=== PATIENT | male | born 1995 | race Asian ===

== ENCOUNTER 2020-05-11 10:06 | Emergency (ER) | payer OTHER ==
[2020-06-27 11:03] LABS: CHLAMYDIA DNA AMPLIFICATION NEGATIVE (NEGATIVE); GC DNA AMPLIFICATION NEGATIVE (NEGATIVE)
[2020-06-28 03:59] LABS: APPEARANCE, URINE HAZY (CLEAR); BACTERIA, URINE AUTO NEGATIVE (NEGATIVE); BILIRUBIN, URINE AUTO NEGATIVE (NEGATIVE); BLOOD, URINE BLOOD NEGATIVE (NEGATIVE); COLOR, URINE YELLOW (YELLOW); GLUCOSE, URINE (UA) AUTO NEGATIVE (NEGATIVE); KETONE, URINE AUTO NEGATIVE (NEGATIVE); LEUKOCYTE ESTERASE, URINE AUTO NEGATIVE (NEGATIVE); NITRITE, URINE AUTO NEGATIVE (NEGATIVE); PROTEIN, URINE AUTO NEGATIVE (NEGATIVE); RBC, URINE AUTO 1 /HPF (0-3); SPECIFIC GRAVITY URINE AUTO 1.002 (1.002-1.035); SQUAMOUS EPITHELIAL CELL UR AU 0 /HPF (0-6); UROBILINOGEN, URINE AUTO 0.2 mg/dL (0.0-2.0); WBC, URINE AUTO 0 /HPF (0-3)
== END 2020-05-11 12:28 | disposition home or self-care (01) ==
LOC: M ED 10:06
DX: R31.9 Hematuria, unspecified (principal)

== ENCOUNTER → 2020-06-03 | Outpatient (REF) | payer OTHER ==
[2020-06-03 19:29] LABS: APPEARANCE, URINE CLEAR (CLEAR); BACTERIA, URINE AUTO NEGATIVE (NEGATIVE); BILIRUBIN, URINE AUTO NEGATIVE (NEGATIVE); BLOOD, URINE BLOOD NEGATIVE (NEGATIVE); COLOR, URINE STRAW (YELLOW); GLUCOSE, URINE (UA) AUTO NEGATIVE (NEGATIVE); KETONE, URINE AUTO NEGATIVE (NEGATIVE); LEUKOCYTE ESTERASE, URINE AUTO NEGATIVE (NEGATIVE); NITRITE, URINE AUTO NEGATIVE (NEGATIVE); PROTEIN, URINE AUTO NEGATIVE (NEGATIVE); RBC, URINE AUTO 0 /HPF (0-3); SPECIFIC GRAVITY URINE AUTO 1.006 (1.002-1.035); SQUAMOUS EPITHELIAL CELL UR AU 0 /HPF (0-6); UROBILINOGEN, URINE AUTO 0.2 mg/dL (0.0-2.0); WBC, URINE AUTO 0 /HPF (0-3)
== END ==
LOC: M LAB REF 17:35
PROVIDERS: ATTEND Nurse Practitioner Family
DX: R31.0 Gross hematuria (principal)

== ENCOUNTER 2020-08-17 15:02 | Emergency (ER) | payer OTHER ==
[~2020-08-17] VITALS: Ht 175.3 cm; Wt 75.6 kg
--- NOTE | 2020-08-17 16:52 | REP ---
INDICATION: bony tenderness. COMPARISON: None. TECHNIQUE: AP and frogleg views. FINDINGS: Femoral head is smooth and rounded hip joint space is preserved. Periarticular soft tissues are unremarkable. No fracture or subluxation is seen. No bony destructive lesion. IMPRESSION: Negative AP and frogleg views of the left hip. <Electronically signed by Allen Breaux > 08/17/20 [id number]
--- NOTE | 2020-08-17 17:00 | REP ---
INDICATION: vertebral tenderness, no known injury. COMPARISON: None. TECHNIQUE: Helical scanning is acquired and 4 mm axial images are generated and viewed at bone and soft tissue window settings. Coronal and sagittal MPR images are generated. FINDINGS: Lumbar vertebral body heights are preserved. Alignment is normal. There is some straightening. No fracture or collapse is seen. Incidental note is made of a unilateral pars interarticularis defect on the right at the L2 vertebral body. This is chronic. No acute posterior element fracture is seen. There is a Schmorl's node at the superior endplate of S1 associated with L5-S1 disc. There is no evidence of spondylolysis. There is no evidence to suggest lumbar disc protrusion or central canal stenosis. No paravertebral soft tissue mass is seen. 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 No spondylolisthesis. No fracture or malalignment. Otherwise negative. <Electronically signed by Allen Breaux > 08/17/20 [id number]
--- NOTE | 2020-08-17 17:02 | REP ---
INDICATION: vertebral tenderness, no known injury. COMPARISON: None. TECHNIQUE: Helical scanning is acquired. 4 mm axial images re-formatted. Coronal and sagittal MPR images are generated. FINDINGS: Thoracic vertebral body heights are preserved. Alignment is normal. No fracture or collapse is seen. No bony destructive lesion is appreciated. No bony neural foraminal abnormality is observed. There is no evidence of paravertebral soft tissue mass. Pedicles and posterior elements are intact. IMPRESSION: No traumatic abnormality noted. Negative CT study of the thoracic spine. <Electronically signed by Allen Breaux > 08/17/20 [id number]
[2020-08-17 17:30] VITALS: BP 135/82
== END 2020-08-17 17:35 | disposition home or self-care (01) ==
LOC: M ED 15:02
DX: M47.816 Spondylosis without myelopathy or radiculopathy, lumbar region (principal)